=== PATIENT | female | born 1965 | race Caucasian/White ===

== ENCOUNTER 2021-01-25 13:58 | Emergency (ER) | payer OTHER ==
[~2021-01-25] VITALS: Ht 162.6 cm; Wt 49.9 kg
[2021-01-25] MEDS ORDERED: ABILIFY10 MG PO (14:40)
[2021-01-25] MEDS ORDERED: PROZAC20 MG (14:41)
--- NOTE | 2021-01-29 20:45 | EKG ---
[facility] [address] [place], [place] [address] Signed Normal sinus rhythm Normal ECG No previous ECGs available Confirmed by AIMEE PEREZ MD ([id number] on 01/29/2021 8:45:30 PM Electronically Signed By: AIMEE PEREZ MD 01/29/212044 PATIENT NAME: MARVIN HAUSER DALE Electrocardiogram DATE OF : 69 PHYSICIAN: AIMEE PEREZ MD REPORT #: [id number] REPORT IS CONFIDENTIAL AND NOT TO BE RELEASED WITHOUT AUTHORIZATION
== END 2021-01-25 16:25 | disposition home or self-care (01) ==
LOC: ED 13:58
DX: F29 Unspecified psychosis not due to a substance or known physiological condition (principal); F15.10 Other stimulant abuse, uncomplicated; Z20.822 Contact with and (suspected) exposure to COVID-19; Z79.899 Other long term (current) drug therapy
CPT/HCPCS: 80053; 81001; 84443; 85025; 93005; 93010; 99285-25; C9803; G0480; U0003